=== PATIENT | male | born 1985 | race Caucasian/White ===

== ENCOUNTER 2020-06-22 19:07 | Emergency (ER) | payer BC ==
[2020-06-22 19:21] VITALS: BP 142/94; PULSE 81
--- NOTE | 2020-06-22 21:24 | CT ---
INDICATION: Status post fall with right sacroiliac joint pain. COMPARISON: None available TECHNIQUE: CT examination of the lumbar spine is performed with spiral technique without contrast. 3 mm thick axial, sagittal and coronal reconstructions were made. Please note that all CT scans at this facility use dose modulation, iterative reconstruction, and/or weight-based dosing when appropriate to reduce radiation dose to as low as reasonably achievable. FINDINGS: : The vertebral bodies are normal in height and they are in anatomic alignment. There is no sign of fracture or subluxation. Intervertebral discs are normal in height. No foraminal stenosis is evident. Incidental note is made of a right anterior L4 vertebral body bone island. The sacroiliac joints are normal in appearance, with no sign of fracture or degenerative disease. The visualized sacrum is normal in appearance as well, with no sign of any fracture. The visualized abdominal viscera is normal in appearance. IMPRESSION: Normal CT of the lumbar spine. Normal CT appearance of the sacroiliac joints and the majority of the sacrum. Please note that all CT scans at this facility use dose modulation, iterative reconstruction, and/or weight-based dosing when appropriate to reduce radiation dose to as low as reasonably achievable. Dictated by Samson Salcedo MD @ Jun 22 2020 9:19PM Signed by Dr. Samson Salcedo @ Jun 22 2020 9:23PM
--- NOTE | 2020-06-22 21:30 | CT ---
INDICATION: Status post fall with right lower lumbar and sacroiliac joint pain. COMPARISON: CT of the lumbar spine from today. TECHNIQUE: CT examination of the pelvis was performed without contrast enhancement using 2 mm thick axial and coronal sections from the superior iliac crest through the pubic symphysis. Oral contrast was not administered. Please note that all CT scans at this facility use dose modulation, iterative reconstruction, and/or weight-based dosing when appropriate to reduce radiation dose to as low as reasonably achievable. FINDINGS: : There is no sign acute osseous injury to the pelvis or hips. The sacroiliac joints are intact. The sacral body and both iliac wings are intact. There is an old, healed fracture of the intertrochanteric region of the left hip with 2 medium caliber cannulated screws passing through the superior end of an intramedullary hernandez. The fusion hardware is intact with no sign loosening. There is mild deformity of the lesser trochanter. The hips are otherwise intact with no sign of acute fracture or dislocation. There is mild primary osteoarthritis of the left hip, with mild subchondral cyst formation in the superior aspect of the left acetabulum. There is no sign of degenerative change on the right. In the pelvis, the appendix is normal in appearance with no sign of inflammatory process. The loops of small bowel and colon in the pelvis are normal in appearance. The prostate is normal in appearance. The urinary bladder is normal in appearance. There is no sign of pelvic or inguinal mass or adenopathy. There is no sign of free fluid or free air in the pelvis. IMPRESSION: No sign of acute osseous injury to the pelvis or hips. Satisfactory appearance status post ORIF of an intertrochanteric fracture of the left hip. Mild primary osteoarthritis of the left hip. Please note that all CT scans at this facility use dose modulation, iterative reconstruction, and/or weight-based dosing when appropriate to reduce radiation dose to as low as reasonably achievable. Dictated by Samson Salcedo MD @ Jun 22 2020 9:19PM Signed by Dr. Samson Salcedo @ Jun 22 2020 9:28PM
--- NOTE | 2020-06-22 21:43 | EDM.PDOC ---
ED HPI GENERAL MEDICAL PROBLEM - General Chief Complaint: Back Pain or Injury Stated Complaint: LOWER BACK PAIN Time Seen by Provider: 06/22/20 19:40 - History of Present Illness INITIAL COMMENTS - FREE TEXT/NARRATIVE: CHIEF COMPLAINT(S): Back pain HISTORY OF PRESENT ILLNESS: This is a 35-year-old man without any significant past medical history who comes to the emergency department with a chief complaint of back pain. The patient states that he fell approximately 10 days ago and was seen at an outside hospital for which they stated he had a muscle spasm and was discharged. He states that he presents today for a second opinion because he has had continued pain. He states that approximately 2 days ago he fell down after slipping and hit the right side of his back and hip. He states that since that time he has been experiencing pain in this area which she describes as aching/sore rated 4-5 out of 10 with 5 out of 10 being the max which is exacerbated by movement or bending over to the right. He states that the pain is worsened when he arches his back. He states that he has tried icing, ibuprofen but it does not seem to be helping. He denies any bowel incontinence, urinary retention, or saddle anesthesia. He denies any other injury such as head injury or loss of consciousness. He states that the pain is located directly on his right lower back and buttock region without any radiation down his legs. He denies any associated numbness, tingling, or weakness of his legs. He states that he is ambulating normally. REVIEW OF SYSTEMS: Constitutional: Denies fever, chills. Eyes: Denies eye pain Ears, Nose, Mouth, & Throat: Denies earache Cardiovascular: Denies chest pain Respiratory: Denies shortness of breath Gastrointestinal: Denies Nausea, vomiting, diarrhea, hematochezia. Genitourinary: Denies hematuria MSK: Positive for right lower back and right buttock pain. Neurological: Denies blurred vision, numbness, tingling, weakness, trouble walking Psychiatric: Denies depression PAST MEDICAL HISTORY: As per history of present illness and as reviewed below otherwise noncontributory. SURGICAL HISTORY: As per history of present illness and as reviewed below otherwise noncontributory. SOCIAL HISTORY: As per history of present illness and as reviewed below otherwise noncontributory. FAMILY HISTORY: As per history of present illness and as reviewed below otherwise noncontributory. EXAMINATION OF ORGAN SYSTEMS/BODY AREAS: Constitutional: Blood pressure was 142/94, heart rate 81, respiratory rate 16 with an oxygen saturation 96% on room air. Temperature 36 point General: Young man who is in no acute distress. Psychiatric: Appropriate mood and affect. Eyes: No scleral icterus or conjunctival erythema ENMT: Moist mucous membranes. No pharyngeal erythema Cardiovascular: Regular, rate, and rhythm. No gallops, murmurs, or rubs. Bilateral upper extremity and lower extremity pulses symmetric and intact. No peripheral edema. No JVD. Respiratory: Lungs clear to auscultation bilaterally. No wheezes, rales, or rhonchi. Gastrointestinal: Soft, non-tender, non-distended. Normoactive bowel sounds Genitourinary: No suprapubic tenderness Musculoskeletal: Normal range of motion. There is no midline cervical or thoracic tenderness. There is mild midline lumbar tenderness. There is more tenderness paracervically in the lumbar region and there is tenderness along the right hip. Negative straight leg test. Skin: No lesions or abrasions. Neurological: Alert, GCS 15 strength and sensation grossly intact in upper and lower extremities bilaterally MEDICAL DECISION MAKING AND COURSE IN THE ED WITH INTERPRETATION/REVIEW OF DIAGNOSTIC STUDIES: This is a 35-year-old without any past medical history who comes to the emergency department with a continued right back and right buttock pain status post fall who is not having any red flag symptoms. Given that this is a second visit for continued pain will obtain CT lumbar spine and CT pelvis for evaluation. I did offer the patient pain medication however he stated he did not want any at this time. I do not believe any other labs or imaging are indicated. The radiological images were viewed by myself along with reading the report from the radiologist. CT pelvis reveals no sign of acute osseous injury to the pelvis or hips. There is satisfactory appearance status post ORIF of intertrochanteric fracture of the left hip. There is mild primary osteoarthritis of the left hip. CT lumbar spine does not reveal any abnormality. There is normal appearance of the SI joint and majority of the sacrum. After imaging I did discuss results with the patient. I discussed the continued use of Tylenol, Motrin, and the cream he states he has at home. I discussed that he should follow-up with primary care physician or orthopedics. He is to return to the emergency department for any red flag symptoms for which I did discuss with him. He was amenable to discharge and had no further questions DISPOSITION: The patient was discharged home in stable condition. The patient will follow up with primary care physician or orthopedics as needed CONDITION: Fair PROCEDURES: None FINAL IMPRESSION(S)/DIAGNOSES: 1. Acute mechanical fall 2. Acute lumbar strain Dale Ogden M.D. lower back Pain Score (Numeric/FACES): 4 - Related Data Allergies Allergy/AdvReac Type Severity Reaction Status Date / Time No Known Allergies Allergy Verified 06/22/20 19:21 Home Meds: Home Meds . [No Known Home Meds] 12/15/14 [History] Past Medical History Other Musculoskeletal History: tibial injury left - Past Surgical History Other Musculoskeletal Surgeries/Procedures:: tibial metal plate inserted Social & Family History - Family History Family Medical History: No Pertinent Family History - Tobacco Use Packs/Tins Daily: 0.5 - Caffeine Use Caffeine Use: Reports: None - Recreational Drug Use Recreational Drug Use: No ED ROS GENERAL - Review of Systems Review Of Systems: See Below ED EXAM,LOWER BACK PAIN/INJURY - Physical Exam Exam: See Below Course - Vital Signs Last Recorded V/S: Last Vital Signs Temp 36.6 C 06/22/20 19:17 Pulse 81 06/22/20 19:17 Resp 16 06/22/20 19:17 BP 142/94 H 06/22/20 19:17 Pulse Ox 96 06/22/20 19:17 Departure - Departure Time of Disposition: 21:41 Disposition: Home, Self-Care 01 Condition: Fair Clinical Impression: Lumbar strain Qualifiers: Encounter type: initial encounter Qualified Code(s): S39.012A - Strain of muscle, fascia and tendon of lower back, initial encounter - Discharge Information *PRESCRIPTION DRUG MONITORING PROGRAM REVIEWED*: No *COPY OF PRESCRIPTION DRUG MONITORING REPORT IN PATIENT ALLISON: No Instructions: Back Injury Prevention, [id number], Muscle Strain, [id number], Pain Medicine Instructions, [id number], How to Use Cold Therapy Referrals: PCP,None [Primary Care Provider] - Forms: ED Department Discharge Additional Instructions: You were evaluated today on an emergent basis. At this time there is no obvious fracture or dislocation or malalignment of your spine or your hips or sacrum. At this time I do suspect lumbar strain. Please continue using the cream as needed for pain. Please use ice to the affected area 20 minutes 4 times a day and use Tylenol 500 mg to 1000 mg every 6 hours and ibuprofen 400 mg every 6 hours for pain for the next 48 hours. After 48 hours you can use the pain medication as needed. Please follow-up with orthopedics either here in [place] or back in [place]. Return to the emergency department if you have any numbness, weakness, or tingling. [facility] - [facility] [address], [address] [place] [address] The patient is informed of any results of their evaluation and diagnostic workup and all questions are answered. They are given discharge instructions and return precautions. The patient is stable for discharge. The patient states they understand and agree with the plan and that they will return if their symptoms get worse or if they have any new concerns. The following information is given to patients seen in the emergency department who are being discharged to home. This information is to outline your options for follow-up care. We provide all patients seen in our emergency department with a follow-up referral. The need for follow-up, as well as the timing and circumstances, are variable depending upon the specifics of your emergency department visit. If you don't have a primary care physician on staff, we will provide you with a referral. We always advise you to contact your personal physician following an emergency department visit to inform them of the circumstance of the visit and for follow-up with them and/or the need for any referrals to a consulting specialist. The emergency department will also refer you to a specialist when appropriate. This referral assures that you have the opportunity for follow-up care with a specialist. All of these measure are taken in an effort to provide you with o ptimal care, which includes your follow-up. Under all circumstances we always encourage you to contact your private physician who remains a resource for coordinating your care. When calling for follow-up care, please make the office aware that this follow-up is from your recent emergency room visit. If for any reason you are refused follow-up, please contact the [facility] at and asked to speak to the emergency department charge nurse. Sepsis Event Note (ED) - Evaluation Sepsis Screening Result: No Definite Risk - Focused Exam Vital Signs: Vital Signs Temp Pulse Resp BP Pulse Ox 06/22/20 19:17 36.6 C 81 16 142/94 H 96
== END 2020-06-22 22:08 | disposition home or self-care (01) ==
LOC: MW.ED 19:07
DX: S39.012A Strain of muscle, fascia and tendon of lower back, initial encounter (principal); W01.0XXA Fall on same level from slipping, tripping and stumbling without subsequent striking against object, initial encounter
CPT/HCPCS: 72131; 72131-26; 72192; 72192-26; 99283-25